=== PATIENT | male | born 1960 ===

== ENCOUNTER 2018-08-20 07:24 | Day surgery (SDC) | payer OTHER ==
[2018-08-20 08:08] VITALS: BMI 32.5
[2018-08-20] MEDS ORDERED: Lactated Ringer's 500 ML IV ONE (08:13)
[2018-08-20] MEDS ORDERED: Midazolam 2 MG/2 ML VIAL ONE (09:03)
[2018-08-20] MEDS ORDERED: Propofol 10 mg/ml Inj (20 ML) ONE (09:03)
[2018-08-20 09:39] VITALS: RESP 20; TEMP 98; O2SAT 98
[2018-08-20 09:51] VITALS: BP 106/74; PULSE 74
== END 2018-08-20 11:07 | disposition home or self-care (01) ==
LOC: H.ENDO 07:24
PROVIDERS: ATTEND Internal Medicine Gastroenterology
DX: Z12.11 Encounter for screening for malignant neoplasm of colon (principal); E78.5 Hyperlipidemia, unspecified; E03.9 Hypothyroidism, unspecified; R06.83 Snoring; K64.8 Other hemorrhoids
CPT/HCPCS: 45378; J2001; J2250; J2704; J7120